=== PATIENT | female | born 1980 | race African-American/Black ===

== ENCOUNTER 2018-04-15 06:49 | Emergency (ER) | payer SELFPAY ==
[~2018-04-15] VITALS: Ht 170.2 cm; Wt 92.7 kg
[2018-04-15 07:00] VITALS: Ht 170.2 cm; Wt 92.7 kg
[2018-04-15 07:48] LABS: BASOPHILS 0.3 % (0-2); HEMATOCRIT 25.1 % (36.0-48.0); IMMATURE GRANULOCYTES 0.3 % (0-5); LYMPHOCYTES 32.9 % (15-50); MCHC 27.9 g/dL (31.0-37.0); MCV 57.4 fL (80.0-100.0); MONOCYTES 5.9 % (2-11); NEUTROPHILS 58.6 % (40-80); PLATELET COUNT 195 10x3/uL (130-400); RBC 4.37 10x6/uL (4.00-5.40); RDW 21.2 % (11.5-14.5); WBC 7.5 10x3/uL (4.8-10.8)
[2018-04-15 07:59] LABS: ALBUMIN 3.1 g/dL (3.4-5.0); ANION GAP 14.8 mmol/L (8-16); BILIRUBIN - TOTAL 0.38 mg/dL (0.2-1.3); CALCIUM 8.7 mg/dL (8.5-10.1); CARBON DIOXIDE 22.8 mmol/L (21.0-32.0); CREATININE - SERUM 0.9 mg/dL (0.6-1.3); POTASSIUM - SERUM 3.6 mmol/L (3.5-5.1); PROTEIN - SERUM 7.9 g/dL (6.4-8.2)
[2018-04-15 09:02] VITALS: BP 142/80
== END 2018-04-15 09:05 | disposition left against medical advice (07) ==
LOC: D.ER 06:49
PROVIDERS: Family Medicine
DX: R19.7 Diarrhea, unspecified (principal); D64.9 Anemia, unspecified; F17.200 Nicotine dependence, unspecified, uncomplicated

== ENCOUNTER 2018-08-03 21:43 | Emergency (ER) | payer SELFPAY ==
[~2018-08-03] VITALS: Ht 170.2 cm; Wt 81.8 kg
[2018-08-03 21:46] VITALS: Ht 170.2 cm; Wt 81.8 kg
[2018-08-03] MEDS ORDERED: NAPROSYN500 MG PO (23:09)
[2018-08-03 23:19] VITALS: BP 125/85
== END 2018-08-03 23:20 | disposition home or self-care (01) ==
LOC: D.ER 21:43
DX: S93.402A Sprain of unspecified ligament of left ankle, initial encounter (principal); X58.XXXA Exposure to other specified factors, initial encounter; Y93.89 Activity, other specified; Y92.89 Other specified places as the place of occurrence of the external cause